=== PATIENT | male | born 1950 | race Caucasian/White ===

== ENCOUNTER 2017-05-20 06:18 | Day surgery (SDC) | payer OTHER ==
[2017-05-11 15:46] VITALS: BMI 21.7
--- NOTE | 2017-05-13 07:52 | HP ---
[facility]ellite [facility] - Chief Complaint Chief Complaint: left shoulder pain - Past Medical History Allergies/Adverse Reactions: Allergies Allergy/AdvReac Type Severity Reaction Status Date / Time No Known Drug Allergies Allergy Verified 05/11/17 15:14 - Current Medications Current Medications: Home Medications Medication Instructions Recorded Aspirin [Aspirin EC] 81 mg PO DAILY 05/11/17 Mirtazapine 15 mg PO HS 05/11/17 Risperidone 0.5 mg PO HS 05/11/17 Rosuvastatin Calcium [Crestor] 10 mg PO HS 05/11/17 Trazodone HCl 200 mg PO HS 05/11/17 Oxycodone HCl/Acetaminophen 1 - 2 tab PO Q6H #50 tab MDD 8 05/13/17 [Percocet 5-325 mg Tablet] Satellite Physical Exam - Physical Examination General Appearance: Well Nourished, Well Developed, Alert & Oriented x3 ENT: Clear Lung: Normal air movement Heart: Regular rate & rhythm Extremities: Other (left shoulder- + ttp, dec rom, + empty can, + neer, + mendoza, nvi MRI + rct) Neurological: Intact, Alert, Oriented Satellite Impression/Plan - Impression/Plan Impression: left shoulder rct Operative Procedure: left shoulder arthroscopy with RCR, SAD Date to be Performed: 05/13/17
[2017-05-20 08:27] LABS: PH,URINE 7.5 (5.0-8.0); URINE APPEARANCE CLEAR; URINE BILIRUBIN NEGATIVE (NEGATIVE); URINE BLOOD NEGATIVE (NEGATIVE); URINE COLOR LT. YELLOW; URINE GLUCOSE (UA) NEGATIVE (NEGATIVE); URINE KETONE NEGATIVE (NEGATIVE); URINE LEUK ESTERASE NEGATIVE (NEGATIVE); URINE NITRITE NEGATIVE (NEGATIVE); URINE PROTEIN NEGATIVE (NEGATIVE); URINE UROBILINOGEN 0.2 mg/dL (0.2-1.0)
[2017-05-20] MEDS ORDERED: ROPIVACAINE HCL 0.5% 30ML VIAL ONE (08:58)
[2017-05-20] MEDS ORDERED: MIDAZOLAM HCL 2 MG/2 ML SINGLE DOSE VIAL ONE ×2 (09:00)
[2017-05-20] MEDS ORDERED: ONDANSETRON 4 MG/2 ML VIAL IVPUSH PRN (09:15)
[2017-05-20] MEDS ORDERED: LACTATED RINGERS SOLUTION 1,000 ML IV SCH (09:15)
[2017-05-20] MEDS ORDERED: oxyCODONE HCL 5 MG TABLET PO PRN (09:15)
[2017-05-20] MEDS ORDERED: PROPOFOL 20 ML ONE (09:23)
[2017-05-20] MEDS ORDERED: ceFAZolin SODIUM 1 GM VIAL IVPB ONE (09:39)
[2017-05-20] MEDS ORDERED: SODIUM CHLORIDE 0.9% P/F 10 ML VIAL IJ ONE (09:42)
[2017-05-20] MEDS ORDERED: ceFAZolin SODIUM 1 GM VIAL ONE (09:42)
[2017-05-20] MEDS ORDERED: KETOROLAC TROMETHAMINE 30 MG/1 ML VIAL ONE (09:45)
[2017-05-20] MEDS ORDERED: LIDOCAINE HCL/PF 2% SDV 5ML VIAL ONE ×2 (09:45)
[2017-05-20] MEDS ORDERED: DEXAMETHASONE SOD PHOSPHATE 4 MG/1 ML VIAL ONE (09:45)
--- NOTE | 2017-05-20 10:54 | OP ---
Operative Note - Note: Operative Date: 05/20/17 ([facility]) Pre-Operative Diagnosis: left shoulder rct Operation: left shoulder arthroscopy with RCR, SAD Implants: 2 arthrex swivelocks Post-Operative Diagnosis: Same as Pre-op Surgeon: Dakota Andrews Ultrasonic Hand Solderer: Michael Quan Anesthesiologist/CRM ADMINISTRATOR: Bam Cleveland Anesthesia: General, Local Specimens Removed: shavings Estimated Blood Loss (mls): 5 Operative Report Dictated: Yes
[2017-05-20 11:32] VITALS: TEMP 97.4
[2017-05-20 14:03] VITALS: BP 132/70; PULSE 88
--- NOTE | 2017-05-20 22:30 | OP ---
DATE OF OPERATION: 05/20/2017 PREOPERATIVE DIAGNOSIS: Left rotator cuff tear. POSTOPERATIVE DIAGNOSIS: Left rotator cuff tear. PROCEDURE: Left shoulder arthroscopy, subacromial debridement of bone and soft tissue, and arthroscopic rotator cuff repair. SURGICAL ATTENDING: Dakota Andrews MD CLIENT SUCCESS DIRECTOR: CRYSTAL Vaughn ANESTHESIA: Regional and general. CLOSURE: FiberTape and SwiveLocks for the rotator cuff and 3-0 nylon for the skin. ESTIMATED BLOOD LOSS: Negligible. COMPLICATIONS: None. CONDITION: Recovery room in stable condition. DESCRIPTION OF PROCEDURE: Patient was taken to the operating room on May 20, 2017. General anesthesia and regional anesthesia were administered by the anesthesiologist. IV Kefzol was administered prophylactically prior to the case. Patient was placed in the beach chair position with all prominences well padded. Left shoulder area was prepped and draped in the usual sterile fashion. First, a diagnostic arthroscopy of the glenohumeral joint was performed. A posterior portal was made 2 fingerbreadths below the acromion, first with a 15 blade, followed by a blunt trocar. Scope revealed the following: Intact glenoid and humeral head articular cartilage, intact labrum circumferentially. The biceps tendon was intact but was in an oblique fashion due to the high-riding nature of the humeral head. Subscapularis was found to be intact as well. The supraspinatus was found to be torn. Fluid was drained from the shoulder, and trocar was removed. Trocar was redirected in the subacromial space. Two lateral portals were made, one directly lateral and one anterolateral with green trocars, and bursectomy was performed in the subacromial space. There was a large subacromial spur that was debrided using the bur down to the appropriate level. Soft tissue encasing the humeral head was debrided using the shaver and the ArthroCare device. The rotator cuff was found to be torn anteriorly and displaced posteriorly. This was freed up, again using graspers and a charlotte to be able to reduce the rotator cuff. The was burred to stimulate some bleeding bone. Multiple FiberTape sutures were passed in horizontal mattress fashion using the Scorpio needle. They were then passed through SwiveLock anchors and now onto the greater tuberosity and reducing the rotator cuff to the greater tuberosity. Sutures were all cut flush. Post-fixation, the shoulder was taken through a range of motion, had good stability to the rotator cuff and a good repair of the rotator cuff to the greater tuberosity. The shoulder was irrigated. The portals were closed using 3-0 nylon. Sterile pressure dressing, followed by shoulder immobilizer, was applied. Patient was awakened and transferred to recovery room in stable condition. No complications. Estimated blood loss: Negligible. Zamzam WALLACE/[id number]
--- NOTE | 2017-05-27 10:14 | PATH ---
Surgical Pathology Report Patient Name: TALIA OSCAR [facility]. Rec. #: [id number] /Age/Gender: 1950 (Age: 67) / M Account: [id number] Location: [facility] SURGICAL Taken: 05/20/2017 Received: 05/20/2017 Reported: 05/27/2017 Physicians: Dakota Andrews M.D. Specimen(s) Received LEFT SHOULDER SHAVINGS Clinical History Left shoulder arthroscopy tear Final Diagnosis SHOULDER SHAVINGS, LEFT, ARTHROSCOPY AND ROTATOR CUFF REPAIR: FRAGMENTS OF BENIGN CARTILAGE, SYNOVIUM, FIBROADIPOSE TISSUE AND SKELETAL MUSCLE. Electronically Signed Rose Love M.D. Gross Description Received in formalin, labeled "left shoulder shavings," is a 5.0 x 3.7 x 0.4 cm. aggregate of betancourt-yellow soft tissue fragments. A customer account representative portion is submitted in one cassette. 05/20/201705/20/2017
== END 2017-05-20 13:25 | disposition home or self-care (01) ==
LOC: JASU-SURG 06:18
PROVIDERS: ATTEND Orthopaedic Surgery
PROC: 0RNK4ZZ Release Left Shoulder Joint, Percutaneous Endoscopic Approach (ICD-10-PCS; principal; 2017-05-20 09:00)
PROC: 0LQ24ZZ Repair Left Shoulder Tendon, Percutaneous Endoscopic Approach (ICD-10-PCS; 2017-05-20 09:00)
DX: M75.102 Unspecified rotator cuff tear or rupture of left shoulder, not specified as traumatic (principal)
CPT/HCPCS: 81003; 88304-TC; 94760